=== PATIENT | female | born 1965 | race African-American/Black ===

== ENCOUNTER 2016-04-01 05:23 | Day surgery (SDC) | payer OTHER ==
[~2016-04-01] VITALS: Ht 152.4 cm; Wt 68.9 kg
[~2016-04-01 05:23] MED LIST: CARAFATE1 GM PO; HYDROCHLOROTHIA25 MG PO; LOPRESSOR25 MG PO; NEXIUM40 MG PO; NOHOMEMEDS; PRILOSEC20 MG PO; PROAIR HFA8.5 GM IH; SLEEP AID50 MG PO; TYLENOL EXTRA500 MG PO; ZANTAC150 MG PO
[2016-04-01 06:45] VITALS: BP 129/64
[2016-04-01 08:50] VITALS: BP 140/73
[2016-04-01 09:46] VITALS: BP 153/86
== END 2016-04-01 10:04 | disposition home or self-care (01) ==
LOC: SDC 05:23
PROC: 0UDB8ZX Extraction of Endometrium, Via Natural or Artificial Opening Endoscopic, Diagnostic (ICD-10-PCS; principal; 2016-04-01)
DX: N93.8 Other specified abnormal uterine and vaginal bleeding (principal); N92.0 Excessive and frequent menstruation with regular cycle; I10 Essential (primary) hypertension; J45.909 Unspecified asthma, uncomplicated; K21.9 Gastro-esophageal reflux disease without esophagitis
CPT/HCPCS: 88305; 93005; J1100; J1885; J2250; J2405; J3010